=== PATIENT | female | born 1990 | race African-American/Black ===

== ENCOUNTER 2017-04-22 15:25 | Observation (INO) | payer OTHER ==
[~2017-04-22] VITALS: Ht 172.7 cm; Wt 150.1 kg
[~2017-04-22 15:25] MED LIST: PREN-142 PO; SERT25TA74 PO
[2017-04-22] MEDS ORDERED: INSLIS SUBCUT (16:36)
[2017-04-22] MEDS ORDERED: LACTATED RINGERS 1,000 ML IV SCH (17:00)
[2017-04-22 17:05] LABS: CLARITY URINE CLEAR (CLEAR); COLOR URINE YELLOW (YELLOW); GLUCOSE URINE NEGATIVE (NEGATIVE); KETONES URINE NEGATIVE (NEGATIVE); LEUKOCYTE ESTERASE URINE NEGATIVE (NEGATIVE); NITRITE URINE NEGATIVE (NEGATIVE); OCCULT BLOOD URINE NEGATIVE (NEGATIVE); PROTEIN URINE NEGATIVE (NEGATIVE); SPECIFIC GRAVITY URINE 1.016 (1.005-1.030); UROBILINOGEN URINE 0.2 E.U./dL (0.2-1.0)
[2017-04-22] MEDS ORDERED: ACETAMINOPHEN 500MG TABLET PO SCH (18:00)
== END 2017-04-22 19:03 | disposition home or self-care (01) ==
LOC: ER 15:52 → L&D 15:55
PROVIDERS: ADMIT Obstetrics & Gynecology; ATTEND Obstetrics & Gynecology
DX: O26.893 Other specified pregnancy related conditions, third trimester (principal); R10.30 Lower abdominal pain, unspecified; R06.02 Shortness of breath; O99.513 Diseases of the respiratory system complicating pregnancy, third trimester; J45.909 Unspecified asthma, uncomplicated; Z3A.32 32 weeks gestation of pregnancy
CPT/HCPCS: 81003; 82731; 82962; 96360; 96361; G0378; J7120; 99281

== ENCOUNTER 2017-05-02 12:37 | Observation (INO) | payer OTHER ==
[~2017-05-02] VITALS: Ht 172.7 cm; Wt 152.0 kg
[~2017-05-02 12:37] MED LIST changes: +INSLIS SUBCUT
[2017-05-02] MEDS ORDERED: CETI10CA8 PO (13:05)
[2017-05-02] MEDS ORDERED: ALBU05 IH (13:05)
== END 2017-05-02 16:10 | disposition home or self-care (01) ==
LOC: L&D 12:37
PROVIDERS: ADMIT Obstetrics & Gynecology; ATTEND Obstetrics & Gynecology
DX: O36.8130 Decreased fetal movements, third trimester, not applicable or unspecified (principal); Z3A.34 34 weeks gestation of pregnancy
CPT/HCPCS: 76815; 76818; 99281; G0378

== ENCOUNTER 2017-05-13 13:05 | Observation (INO) | payer OTHER ==
[~2017-05-13] VITALS: Ht 172.7 cm; Wt 152.4 kg
[~2017-05-13 13:05] MED LIST changes: +ALBU05 IH; +CETI10CA8 PO
[2017-05-13] MEDS ORDERED: SODIUM CHLORIDE 0.9% 1,000 ML IV SCH (13:45)
[2017-05-13] MEDS ORDERED: INSU100V3 SUBCUT ×2 (14:19→14:28)
[2017-05-13] MEDS ORDERED: INSLIS SUBCUT (14:27)
[2017-05-13 14:57] LABS: CLARITY URINE CLEAR (CLEAR); COLOR URINE YELLOW (YELLOW); KETONES URINE NEGATIVE (NEGATIVE); LEUKOCYTE ESTERASE URINE NEGATIVE (NEGATIVE); NITRITE URINE NEGATIVE (NEGATIVE); OCCULT BLOOD URINE NEGATIVE (NEGATIVE); PROTEIN URINE NEGATIVE (NEGATIVE); SPECIFIC GRAVITY URINE 1.024 (1.005-1.030); UROBILINOGEN URINE 0.2 E.U./dL (0.2-1.0)
== END 2017-05-13 15:30 | disposition home or self-care (01) ==
LOC: L&D 13:05
PROVIDERS: ADMIT Obstetrics & Gynecology; ATTEND Obstetrics & Gynecology
DX: O26.893 Other specified pregnancy related conditions, third trimester (principal); R10.9 Unspecified abdominal pain; M54.5 Low back pain; N89.8 Other specified noninflammatory disorders of vagina; O24.419 Gestational diabetes mellitus in pregnancy, unspecified control; Z3A.35 35 weeks gestation of pregnancy
CPT/HCPCS: 81003; 99281; G0378; J7030; 96361

== ENCOUNTER 2017-06-02 10:13 | Observation (INO) | payer OTHER ==
[~2017-06-02] VITALS: Ht 172.7 cm; Wt 154.2 kg
[~2017-06-02 10:13] MED LIST changes: +INSU100V3 SUBCUT
== END 2017-06-02 13:20 | disposition home or self-care (01) ==
LOC: L&D 10:13
PROVIDERS: ADMIT Obstetrics & Gynecology; ATTEND Obstetrics & Gynecology
DX: O36.8130 Decreased fetal movements, third trimester, not applicable or unspecified (principal); O24.419 Gestational diabetes mellitus in pregnancy, unspecified control; Z3A.38 38 weeks gestation of pregnancy
CPT/HCPCS: 76805; 76818; 99281; G0378; 82962

== ENCOUNTER 2017-06-04 17:43 | Observation (INO) | payer OTHER ==
[~2017-06-04] VITALS: Ht 172.7 cm; Wt 154.2 kg
== END 2017-06-04 18:55 | disposition home or self-care (01) ==
LOC: L&D 17:43
PROVIDERS: ADMIT Obstetrics & Gynecology; ATTEND Obstetrics & Gynecology
DX: O62.9 Abnormality of forces of labor, unspecified (principal); Z3A.38 38 weeks gestation of pregnancy
CPT/HCPCS: 99281; G0378

== ENCOUNTER 2017-06-06 12:00 | Inpatient (IN) | payer OTHER ==
[~2017-06-06] VITALS: Ht 172.7 cm; Wt 156.0 kg
[2017-06-06] MEDS ORDERED: ONDANSETRON HCL 4MG/2ML VIAL IV PRN (13:15)
[2017-06-06] MEDS: LACTATED RINGERS 1,000 ML IV SCH ×3 (13:45→23:38)
[2017-06-06 15:13] LABS: CLARITY URINE CLOUDY (CLEAR); COLOR URINE YELLOW (YELLOW); KETONES URINE TRACE (NEGATIVE); LEUKOCYTE ESTERASE URINE 1+ (NEGATIVE); NITRITE URINE NEGATIVE (NEGATIVE); OCCULT BLOOD URINE NEGATIVE (NEGATIVE); PROTEIN URINE NEGATIVE (NEGATIVE); SPECIFIC GRAVITY URINE 1.028 (1.005-1.030)
[2017-06-06 15:25] LABS: INR 0.9; PARTIAL THROMBOPLASTIN TIME 25.4 sec (23.4-31.0); PROTHROMBIN TIME 9.8 sec (9.4-11.6)
[2017-06-06 15:30] LABS: BASOPHILS % 0.5 % (0.0-2.0); EOSINOPHILS % 1.2 % (0.0-5.0); HEMATOCRIT. 40.9 % (36.0-48.0); HEMOGLOBIN. 13.3 g/dL (12.0-16.0); LYMPHOCYTES % 16.9 % (20.0-50.0); MEAN CORPUSCULAR HEMOGLOBIN 27.3 pg (28.0-32.0); MEAN CORPUSCULAR VOLUME 84.1 fL (81.0-99.0); MEAN PLATELET VOLUME 9.7 fl (7.4-10.4); MONOCYTES % 10.8 % (2.0-8.0); NEUTROPHILS % 70.6 % (40.0-76.0); PLATELET 296 x1000/uL (130-400); RED BLOOD CELL COUNT 4.86 mill/uL (4.2-5.4); RED CELL DISTRIBUTION WIDTH 14.8 % (11.6-14.6)
[2017-06-06 15:35] LABS: *AMPHETAMINES SCREEN URINE NEGATIVE (NEGATIVE); *BARBITURATES SCREEN URINE NEGATIVE (NEGATIVE); *BENZODIAZEPINES SCREEN URINE NEGATIVE (NEGATIVE); *COCAINE SCREEN URINE NEGATIVE (NEGATIVE); CANNABINOID URINE SCREEN NEGATIVE (NEGATIVE); METHADONE URINE SCREEN NEGATIVE (NEGATIVE); OPIATES URINE SCREEN NEGATIVE (NEGATIVE); PHENCYCLIDINE URINE SCREEN NEGATIVE (NEGATIVE)
[2017-06-06 16:04] LABS: HEPATITIS B SURFACE ANTIGEN NEGATIVE; RUBELLA IGG 41.9 IU/mL (4.99-10)
[2017-06-06] MEDS ORDERED: DINOPROSTONE 10MG VAGINAL INSERT VG NR (18:00)
[2017-06-06] MEDS ORDERED: INFLUENZA VIRUS VACCINE 0.5ML SYR IM ONE (18:00)
[2017-06-06] MEDS ORDERED: INSULIN REGULAR (HUMULIN R) 300UNITS/3ML SUBCUT NR (20:00)
[2017-06-07] MEDS ORDERED: DEXT 5%/LR + PITOCIN 20UNITS/L 1,000 ML IV SCH (07:15)
[2017-06-07] MEDS ORDERED: INSULIN REGULAR (HUMULIN R) 300UNITS/3ML SUBCUT ONE (07:15)
[2017-06-07] MEDS: LACTATED RINGERS 1,000 ML IV SCH ×2 (08:20→22:52)
[2017-06-07] MEDS ORDERED: VASOPRESSIN IV SCH (11:30)
[2017-06-07] MEDS ORDERED: OXYTOCIN 20 UNITS in LACTATED RINGERS 1,000 ML IV SCH (11:30)
[2017-06-07] MEDS ORDERED: LACTATED RINGERS IV SCH (11:30)
[2017-06-07] MEDS ORDERED: INSULIN LISPRO 100 UNITS/ML SUBCUT ONE (11:40)
[2017-06-07] MEDS: CLINDAMYCIN 900 MG in DEXTROSE 5% WATER 50 ML IV SCH ×2 (14:53→23:52)
[2017-06-07] MEDS: BLOOD SUGAR DIAGNOSTIC STRIP TEST SCH (21:37)
[2017-06-08] MEDS: BLOOD SUGAR DIAGNOSTIC STRIP TEST SCH ×4 (03:37→22:50)
[2017-06-08] MEDS: LACTATED RINGERS 1,000 ML IV SCH ×2 (10:33→17:55)
[2017-06-08] MEDS: MISOPROSTOL 100MCG TABLET VG PRN ×2 (13:39→22:42)
[2017-06-08] MEDS: SERTRALINE HCL 50MG TABLET PO SCH (22:03)
[2017-06-09] MEDS: LACTATED RINGERS 1,000 ML IV SCH (02:14)
[2017-06-09] MEDS: BLOOD SUGAR DIAGNOSTIC STRIP TEST SCH ×3 (02:30→06:30)
[2017-06-09] MEDS: MISOPROSTOL 100MCG TABLET VG PRN (02:33)
[2017-06-09] MEDS: CLINDAMYCIN 900 MG in DEXTROSE 5% WATER 50 ML IV SCH ×2 (05:01→21:03)
[2017-06-09] MEDS: BUTORPHANOL TARTRATE 2 MG/ML VIAL IV PRN ×3 (06:17→18:38)
[2017-06-09] MEDS: SERTRALINE HCL 50MG TABLET PO SCH (09:00)
[2017-06-09] MEDS ORDERED: TERBUTALINE SULFATE 1MG/ML VIAL ONE (09:52)
[2017-06-09] MEDS ORDERED: FENTANYL CITRATE/PF 50MCG/ML 2ML VIAL ONE (10:06)
[2017-06-09] MEDS ORDERED: MORPHINE SULFATE/PF 1MG/ML 10ML AMP ONE (10:07)
[2017-06-09] MEDS ORDERED: PHENYLEPHRINE HCL 10 MG/ML 1ML (IV VIAL) IV ONE (10:11)
[2017-06-09] MEDS ORDERED: OXYTOCIN 10 UNITS/ML 1ML ONE (10:12)
[2017-06-09] MEDS ORDERED: EPHEDRINE SULFATE 50MG/ML VIAL ONE (10:12)
[2017-06-09] MEDS ORDERED: GLYCOPYRROLATE 0.2 MG/ML 2ML VIAL ONE (10:12)
[2017-06-09] MEDS ORDERED: ONDANSETRON HCL 4MG/2ML VIAL ONE (10:13)
[2017-06-09] MEDS ORDERED: MIDAZOLAM HCL 2 MG/2 ML VIAL ONE ×2 (10:39→11:00)
[2017-06-09] MEDS ORDERED: DIPHENHYDRAMINE 50MG/ML VIAL ONE (10:58)
[2017-06-09 11:08] LABS: BG BASE EXCESS -4.5 mmol/L (-2.0-2.0); BG FRACTION INSPIRED OXYGEN 21; BG HCO3 ACT 21.2 mmol/L (22.0-26.0); BG PCO2 41.2 mmHg (35.0-45.0); BG PH 7.329 (7.350-7.450); BG PO2 < 30.3 mmHg (75.0-100.0); BG SAMPLE SITE CORD; BG VENT MODE ROOM AIR
[2017-06-09 11:10] LABS: BG BASE EXCESS -3.9 mmol/L (-2.0-2.0); BG FRACTION INSPIRED OXYGEN 21; BG HCO3 ACT 20.9 mmol/L (22.0-26.0); BG PCO2 37.3 mmHg (35.0-45.0); BG PH 7.366 (7.350-7.450); BG PO2 < 30.3 mmHg (75.0-100.0); BG SAMPLE SITE CORD; BG VENT MODE ROOM AIR
[2017-06-09] MEDS ORDERED: DEXT 5%/LR + PITOCIN 20UNITS/L 1,000 ML IV SCH (12:00)
[2017-06-09] MEDS ORDERED: BUTORPHANOL TARTRATE 2 MG/ML VIAL IV PRN (12:00)
[2017-06-09] MEDS ORDERED: HYDROCODONE/ACETAMINOPHEN 5/325MG TABLET PO PRN (12:00)
[2017-06-09] MEDS ORDERED: NALOXONE HCL 0.4 MG/ML 1ML VIAL IV PRN (12:00)
[2017-06-09] MEDS ORDERED: INFLUENZA VIRUS VACCINE 0.5ML SYR IM ONE (12:00)
[2017-06-09] MEDS ORDERED: BISACODYL 10MG SUPP PR PRN (12:00)
[2017-06-09] MEDS ORDERED: LANOLIN OINT 0.25 GM TUBE TOP PRN (12:00)
[2017-06-09] MEDS ORDERED: RHO(D) IMMUNE GLOBULIN 300 MCG/SYR IM PRN (12:00)
[2017-06-09] MEDS ORDERED: ONDANSETRON HCL 4MG/2ML VIAL IV PRN (12:00)
[2017-06-09] MEDS: SIMETHICONE 80MG TABLET CHEW PO SCH ×2 (12:40→17:00)
[2017-06-09 15:35] VITALS: BP 111/57
[2017-06-09 16:05] VITALS: BP 123/77
[2017-06-09 17:05] VITALS: BP 120/65
[2017-06-09 19:38] VITALS: BP 118/65
[2017-06-09] MEDS: DOCUSATE SODIUM 100MG CAPSULE PO SCH (20:57)
[2017-06-09 22:08] VITALS: BP 131/72
[2017-06-09] MEDS: DIPHENHYDRAMINE 50MG/ML VIAL IV PRN (22:08)
[2017-06-10 00:40] VITALS: BP 111/67
[2017-06-10 02:25] VITALS: BP 107/82
[2017-06-10] MEDS: BUTORPHANOL TARTRATE 2 MG/ML VIAL IV PRN (02:27)
[2017-06-10] MEDS: CLINDAMYCIN 900 MG in DEXTROSE 5% WATER 50 ML IV SCH (03:57)
[2017-06-10 06:00] VITALS: BP 105/85
[2017-06-10 06:51] LABS: BASOPHILS % 0.2 % (0.0-2.0); EOSINOPHILS % 0.3 % (0.0-5.0); HEMATOCRIT. 32.3 % (36.0-48.0); HEMOGLOBIN. 10.6 g/dL (12.0-16.0); LYMPHOCYTES % 10.3 % (20.0-50.0); MEAN CORPUSCULAR HEMOGLOBIN 27.4 pg (28.0-32.0); MEAN CORPUSCULAR VOLUME 83.3 fL (81.0-99.0); MEAN PLATELET VOLUME 9.1 fl (7.4-10.4); MONOCYTES % 9.8 % (2.0-8.0); NEUTROPHILS % 79.4 % (40.0-76.0); PLATELET 245 x1000/uL (130-400); RED BLOOD CELL COUNT 3.88 mill/uL (4.2-5.4); RED CELL DISTRIBUTION WIDTH 14.7 % (11.6-14.6)
[2017-06-10] MEDS: DIPHENHYDRAMINE 50MG/ML VIAL IV PRN (07:54)
[2017-06-10 08:00] VITALS: BP 121/78
[2017-06-10] MEDS: PRENATAL VIT/FE FUMARATE/FA TABLET PO SCH (08:59)
[2017-06-10] MEDS: SIMETHICONE 80MG TABLET CHEW PO SCH ×2 (08:59→17:26)
[2017-06-10] MEDS: SERTRALINE HCL 50MG TABLET PO SCH (08:59)
[2017-06-10] MEDS: DIPHENHYDRAMINE 25MG CAPSULE PO PRN ×3 (12:02→22:09)
[2017-06-10] MEDS: CLINDAMYCIN HCL 150MG CAPSULE PO SCH ×2 (12:02→21:11)
[2017-06-10] MEDS: HYDROCODONE/ACETAMINOPHEN 5/325MG TABLET PO PRN ×3 (12:55→22:10)
[2017-06-10] MEDS ORDERED: TERBUTALINE SULFATE 1MG/ML VIAL SUBCUT ONE (14:00)
[2017-06-10] MEDS: FERROUS SULFATE 325MG TABLET PO SCH ×2 (14:45→18:05)
[2017-06-10 16:19] VITALS: BP 118/68
[2017-06-10 20:00] VITALS: BP 116/72
[2017-06-10] MEDS: DOCUSATE SODIUM 100MG CAPSULE PO SCH (21:12)
[2017-06-11] MEDS: SIMETHICONE 80MG TABLET CHEW PO SCH ×5 (00:25→20:53)
[2017-06-11] MEDS: HYDROCODONE/ACETAMINOPHEN 5/325MG TABLET PO PRN ×4 (03:17→16:26)
[2017-06-11 05:23] VITALS: BP 110/61
[2017-06-11] MEDS: PRENATAL VIT/FE FUMARATE/FA TABLET PO SCH (08:14)
[2017-06-11] MEDS: FERROUS SULFATE 325MG TABLET PO SCH ×3 (08:15→17:00)
[2017-06-11] MEDS: SERTRALINE HCL 50MG TABLET PO SCH (08:15)
[2017-06-11] MEDS: IBUPROFEN 400MG TABLET PO PRN ×2 (08:16→16:24)
[2017-06-11 08:30] VITALS: BP 120/83
[2017-06-11] MEDS ORDERED: TETANUS, DIPHTHERIA, PERTUSSIS VAC/PF 0.5ML (>7YR OLD) IM ONE (12:00)
[2017-06-11 16:00] VITALS: BP 109/67
[2017-06-11] MEDS ORDERED: IBUPROFEN 400MG TABLET PO SCH (17:30)
[2017-06-11] MEDS ORDERED: IBUPROFEN 800MG TABLET PO SCH (17:36)
[2017-06-11 20:30] VITALS: BP 112/71
[2017-06-11] MEDS: DOCUSATE SODIUM 100MG CAPSULE PO SCH (20:52)
[2017-06-11] MEDS: IBUPROFEN 800MG TABLET PO SCH (20:54)
[2017-06-11] MEDS: OXYCODONE HCL/ACETAMINOPHEN 5/325MG TABLET PO PRN (20:54)
[2017-06-11 21:54] LABS: CLARITY URINE CLOUDY (CLEAR); COLOR URINE YELLOW (YELLOW); KETONES URINE TRACE (NEGATIVE); LEUKOCYTE ESTERASE URINE 1+ (NEGATIVE); NITRITE URINE NEGATIVE (NEGATIVE); OCCULT BLOOD URINE 3+ (NEGATIVE); PROTEIN URINE 2+ (NEGATIVE); SPECIFIC GRAVITY URINE 1.029 (1.005-1.030); UROBILINOGEN URINE 0.2 E.U./dL (0.2-1.0)
[2017-06-11] MEDS ORDERED: INFLUENZA VIRUS VACCINE 0.5ML SYR IM ONE (22:00)
[2017-06-12 00:10] VITALS: BP 91/48
[2017-06-12] MEDS: OXYCODONE HCL/ACETAMINOPHEN 5/325MG TABLET PO PRN (02:21)
[2017-06-12] MEDS: IBUPROFEN 800MG TABLET PO SCH ×2 (02:22→09:03)
[2017-06-12 05:30] VITALS: BP 97/52
[2017-06-12 08:30] VITALS: BP 98/53
[2017-06-12] MEDS: FERROUS SULFATE 325MG TABLET PO SCH (09:03)
[2017-06-12] MEDS: PRENATAL VIT/FE FUMARATE/FA TABLET PO SCH (09:04)
[2017-06-12] MEDS: SIMETHICONE 80MG TABLET CHEW PO SCH (09:04)
[2017-06-12] MEDS: SERTRALINE HCL 50MG TABLET PO SCH (09:04)
== END 2017-06-12 12:55 | disposition home or self-care (01) | DRG 540 ==
LOC: OBSVTOIN 12:00 → L&D 12:00 → 7EST PP/OB 06-09 15:30
PROVIDERS: ADMIT Obstetrics & Gynecology; ATTEND Obstetrics & Gynecology
PROC: 3E0P7VZ Introduction of Hormone into Female Reproductive, Via Natural or Artificial Opening (ICD-10-PCS; 2017-06-06)
PROC: 10D00Z1 Extraction of Products of Conception, Low, Open Approach (ICD-10-PCS; principal; 2017-06-09 11:44)
DX: O24.429 Gestational diabetes mellitus in childbirth, unspecified control (principal); Z68.43 Body mass index [BMI] 50.0-59.9, adult; O99.214 Obesity complicating childbirth; E66.01 Morbid (severe) obesity due to excess calories; O61.0 Failed medical induction of labor; O34.13 Maternal care for benign tumor of corpus uteri, third trimester; D25.9 Leiomyoma of uterus, unspecified; D64.9 Anemia, unspecified; O69.1XX0 Labor and delivery complicated by cord around neck, with compression, not applicable or unspecified; O76 Abnormality in fetal heart rate and rhythm complicating labor and delivery; O99.02 Anemia complicating childbirth; O99.824 Streptococcus B carrier state complicating childbirth; O77.0 Labor and delivery complicated by meconium in amniotic fluid; Z37.0 Single live birth; Z3A.39 39 weeks gestation of pregnancy; Z79.4 Long term (current) use of insulin; Z79.899 Other long term (current) drug therapy; Z88.0 Allergy status to penicillin; Z88.8 Allergy status to other drugs, medicaments and biological substances
CPT/HCPCS: 36415; 36600; 80305; 81001; 82805; 82947; 82962; 85025; 85610; 85730; 86592; 86703; 86762; 86850; 86900; 87086; 87340; 88307; 90686; 90715; G0378; J0171; J0595; J1200; J1815; J2250; J2274; J2370; J2405; J2590; J3010; J3105; J3490; J7060; J7120; Q0163; A4315

== ENCOUNTER 2017-08-23 09:24 | Emergency (ER) | payer OTHER ==
[~2017-08-23] VITALS: Ht 172.7 cm; Wt 146.0 kg
[~2017-08-23 09:24] MED LIST changes: -ALBU05 IH; -CETI10CA8 PO; -INSLIS SUBCUT; -INSU100V3 SUBCUT; -SERT25TA74 PO
[2017-08-23 10:34] VITALS: BP 127/88
== END 2017-08-23 10:43 | disposition home or self-care (01) ==
LOC: ER 09:50
DX: Z76.0 Encounter for issue of repeat prescription (principal); E11.9 Type 2 diabetes mellitus without complications; J45.909 Unspecified asthma, uncomplicated; Z88.1 Allergy status to other antibiotic agents; Z88.0 Allergy status to penicillin
CPT/HCPCS: 99283

== ENCOUNTER 2018-01-01 16:05 | Emergency (ER) | payer OTHER ==
[~2018-01-01] VITALS: Ht 172.7 cm; Wt 155.0 kg
[2018-01-01] MEDS ORDERED: SODIUM CHLORIDE 0.9% 1,000 ML IV ONE (16:55)
[2018-01-01] MEDS ORDERED: KETOROLAC 30MG/ML VIAL IV STA (16:55)
[2018-01-01] MEDS ORDERED: MORPHINE SULFATE 4 MG/ML CPJ (NOT FOR IM USE) IV STA (16:55)
[2018-01-01] MEDS ORDERED: ONDANSETRON HCL 4MG/2ML VIAL IV STA (16:55)
[2018-01-01] MEDS ORDERED: ONDANSETRON 4MG ODT PO ONE (17:45)
[2018-01-01 18:47] LABS: *BARBITURATES SCREEN URINE NEGATIVE (NEGATIVE); *BENZODIAZEPINES SCREEN URINE NEGATIVE (NEGATIVE); *COCAINE SCREEN URINE NEGATIVE (NEGATIVE)
[2018-01-01 18:48] LABS: *AMPHETAMINES SCREEN URINE NEGATIVE (NEGATIVE); CANNABINOID URINE SCREEN NEGATIVE (NEGATIVE); METHADONE URINE SCREEN NEGATIVE (NEGATIVE); OPIATES URINE SCREEN NEGATIVE (NEGATIVE); PHENCYCLIDINE URINE SCREEN NEGATIVE (NEGATIVE)
[2018-01-01 19:03] LABS: BASOPHILS % 0.7 % (0.0-2.0); EOSINOPHILS % 0.4 % (0.0-5.0); HEMATOCRIT. 41.4 % (36.0-48.0); HEMOGLOBIN. 13.6 g/dL (12.0-16.0); LYMPHOCYTES % 19.7 % (20.0-50.0); MEAN CORPUSCULAR HEMOGLOBIN 27.3 pg (28.0-32.0); MEAN CORPUSCULAR VOLUME 83.3 fL (81.0-99.0); MEAN PLATELET VOLUME 9.2 fl (7.4-10.4); MONOCYTES % 7.1 % (2.0-8.0); NEUTROPHILS % 72.1 % (40.0-76.0); PLATELET 322 x1000/uL (130-400); RED BLOOD CELL COUNT 4.97 mill/uL (4.2-5.4); RED CELL DISTRIBUTION WIDTH 13.8 % (11.6-14.6)
[2018-01-01 19:07] LABS: CHLORIDE 106 mEq/L (98-107)
[2018-01-01 21:12] VITALS: BP 121/63
== END 2018-01-01 21:16 | disposition home or self-care (01) ==
LOC: ER 16:21
DX: G43.909 Migraine, unspecified, not intractable, without status migrainosus (principal); E11.9 Type 2 diabetes mellitus without complications; Z88.3 Allergy status to other anti-infective agents; Z88.0 Allergy status to penicillin
CPT/HCPCS: 36415; 80048; 80305; 81025; 85025; 99284; J7030; Q0162; Z7610

== ENCOUNTER 2018-06-21 19:50 | Emergency (ER) | payer OTHER ==
[~2018-06-21] VITALS: Ht 172.7 cm; Wt 154.0 kg
[2018-06-21 22:37] VITALS: BP 118/75
== END 2018-06-21 22:40 | disposition home or self-care (01) ==
LOC: ER 19:50
DX: L73.9 Follicular disorder, unspecified (principal); N76.0 Acute vaginitis; F17.200 Nicotine dependence, unspecified, uncomplicated; J45.909 Unspecified asthma, uncomplicated; E11.9 Type 2 diabetes mellitus without complications; Z98.890 Other specified postprocedural states; Z88.0 Allergy status to penicillin; Z88.1 Allergy status to other antibiotic agents
CPT/HCPCS: 99283

== ENCOUNTER 2018-09-03 10:29 | Emergency (ER) | payer OTHER ==
[~2018-09-03] VITALS: Ht 172.7 cm; Wt 160.0 kg
[2018-09-03] MEDS ORDERED: SODIUM CHLORIDE 0.9% 1,000 ML IV ONE (15:33)
[2018-09-03 16:01] LABS: CHLORIDE 105 mEq/L (98-107)
[2018-09-03 16:01] LABS: CLARITY URINE CLOUDY (CLEAR); COLOR URINE YELLOW (YELLOW); KETONES URINE TRACE (NEGATIVE); LEUKOCYTE ESTERASE URINE TRACE (NEGATIVE); NITRITE URINE NEGATIVE (NEGATIVE); OCCULT BLOOD URINE NEGATIVE (NEGATIVE); PH URINE 5.5 (4.5-8.0); PROTEIN URINE NEGATIVE (NEGATIVE); UROBILINOGEN URINE 0.2 E.U./dL (0.2-1.0)
[2018-09-03 16:03] LABS: BASOPHILS % 0.7 % (0.0-2.0); HEMATOCRIT. 40.9 % (36.0-48.0); HEMOGLOBIN. 13.4 g/dL (12.0-16.0); LYMPHOCYTES % 29.7 % (20.0-50.0); MEAN CORPUSCULAR HEMOGLOBIN 27.3 pg (28.0-32.0); MEAN CORPUSCULAR VOLUME 83.1 fL (81.0-99.0); MEAN PLATELET VOLUME 9.3 fl (7.4-10.4); NEUTROPHILS % 59.6 % (40.0-76.0); PLATELET 337 x1000/uL (130-400); RED BLOOD CELL COUNT 4.92 mill/uL (4.2-5.4); RED CELL DISTRIBUTION WIDTH 13.5 % (11.6-14.6)
[2018-09-03 16:10] LABS: PROTHROMBIN TIME 10.2 sec (9.6-11.0)
[2018-09-03 16:11] LABS: *BARBITURATES SCREEN URINE NEGATIVE (NEGATIVE)
[2018-09-03 16:12] LABS: B-HCG QUANTITATIVE < 1 mIU/mL (<3)
[2018-09-03 16:12] LABS: *AMPHETAMINES SCREEN URINE NEGATIVE (NEGATIVE); *COCAINE SCREEN URINE NEGATIVE (NEGATIVE); METHADONE URINE SCREEN NEGATIVE (NEGATIVE); OPIATES URINE SCREEN NEGATIVE (NEGATIVE); PHENCYCLIDINE URINE SCREEN NEGATIVE (NEGATIVE)
[2018-09-03 16:13] LABS: CANNABINOID URINE SCREEN NEGATIVE (NEGATIVE)
[2018-09-03 16:20] LABS: *BENZODIAZEPINES SCREEN URINE PRESUMTIVE POSITIVE (NEGATIVE)
[2018-09-03 17:37] VITALS: BP 124/77
[2018-09-03] MEDS ORDERED: KETOROLAC 60MG/2ML VIAL IM ONE (17:45)
== END 2018-09-03 18:10 | disposition home or self-care (01) ==
LOC: ER 10:29
DX: D25.9 Leiomyoma of uterus, unspecified (principal); R10.9 Unspecified abdominal pain; N83.209 Unspecified ovarian cyst, unspecified side; E11.9 Type 2 diabetes mellitus without complications; R03.0 Elevated blood-pressure reading, without diagnosis of hypertension; E66.01 Morbid (severe) obesity due to excess calories; Z88.0 Allergy status to penicillin; Z88.3 Allergy status to other anti-infective agents; J45.909 Unspecified asthma, uncomplicated
CPT/HCPCS: 36415; 76830; 76856; 80053; 80305; 81003; 81025; 84702; 85025; 85610; 86850; 86900; 86901; 96372; 99284; J1885; J7030

== ENCOUNTER 2020-03-10 03:10 | Emergency (ER) | payer OTHER ==
[~2020-03-10] VITALS: Ht 172.7 cm; Wt 105.0 kg
[~2020-03-10 03:10] MED LIST changes: -PREN-142 PO; +PRENATAL ONE T1 EACH PO
[2020-03-10] MEDS ORDERED: ONDANSETRON 4MG ODT PO ONE (06:30)
[2020-03-10] MEDS ORDERED: HYDROCODONE/ACETAMINOPHEN 5/325MG TABLET PO ONE (06:30)
[2020-03-10 08:25] LABS: *BARBITURATES SCREEN URINE NEGATIVE (NEGATIVE); *BENZODIAZEPINES SCREEN URINE NEGATIVE (NEGATIVE)
[2020-03-10 08:26] LABS: *AMPHETAMINES SCREEN URINE NEGATIVE (NEGATIVE); METHADONE URINE SCREEN NEGATIVE (NEGATIVE); OPIATES URINE SCREEN NEGATIVE (NEGATIVE); PHENCYCLIDINE URINE SCREEN NEGATIVE (NEGATIVE)
[2020-03-10 08:28] LABS: *COCAINE SCREEN URINE PRESUMTIVE POSITIVE (NEGATIVE); CANNABINOID URINE SCREEN PRESUMTIVE POSITIVE (NEGATIVE)
[2020-03-10 10:15] VITALS: BP 154/91
== END 2020-03-10 10:20 | disposition home or self-care (01) ==
LOC: ER 03:10
DX: S16.1XXA Strain of muscle, fascia and tendon at neck level, initial encounter (principal); S00.83XA Contusion of other part of head, initial encounter; S50.11XA Contusion of right forearm, initial encounter; E11.9 Type 2 diabetes mellitus without complications; J45.909 Unspecified asthma, uncomplicated; Z88.0 Allergy status to penicillin; Z88.1 Allergy status to other antibiotic agents; Z98.890 Other specified postprocedural states; Y04.0XXA Assault by unarmed brawl or fight, initial encounter; Y93.89 Activity, other specified; Y92.89 Other specified places as the place of occurrence of the external cause; Y99.8 Other external cause status
CPT/HCPCS: 70450; 70486; 72125; 73090; 80305; 81025; 99285; Q0162

== ENCOUNTER 2022-08-11 17:47 | Emergency (ER) | payer MEDICAID, OTHER ==
[~2022-08-11] VITALS: Ht 170.2 cm; Wt 163.0 kg
[2022-08-11 17:56] VITALS: BP 172/116
== END 2022-08-11 23:31 | disposition left against medical advice (07) ==
LOC: ER 17:47
DX: R51.9 Headache, unspecified (principal); Z53.21 Procedure and treatment not carried out due to patient leaving prior to being seen by health care provider
CPT/HCPCS: 99281